=== PATIENT | male | born 1935 | race African-American/Black ===

== ENCOUNTER 2018-01-27 22:11 | Emergency (ER) | payer OTHER ==
[~2018-01-27] VITALS: Ht 182.9 cm; Wt 87.0 kg
[~2018-01-27 22:11] MED LIST: ATENOLOL; DILAUDID; HCTZ; LISINOPRIL; NORCO; SIMVASTATIN
[2018-01-27] MEDS ORDERED: SODIUM CHLORIDE 0.9% 1,000 ML IV ONE (22:58)
[2018-01-27 23:53] LABS: BASOPHILS % 0.5 % (0.0-2.0); EOSINOPHILS % 0.1 % (0.0-5.0); HEMATOCRIT. 31.9 % (42.0-52.0); HEMOGLOBIN. 10.6 g/dL (14.0-18.0); LYMPHOCYTES % 12.9 % (20.0-50.0); MEAN CORPUSCULAR HEMOGLOBIN 25.3 pg (28.0-32.0); MEAN CORPUSCULAR VOLUME 76.1 fL (80.0-94.0); MEAN PLATELET VOLUME 7.1 fl (7.4-10.4); MONOCYTES % 13.1 % (2.0-8.0); NEUTROPHILS % 73.4 % (40.0-76.0); PLATELET 275 x1000/uL (130-400); RED CELL DISTRIBUTION WIDTH 19.6 % (11.6-14.6)
[2018-01-28 00:04] LABS: CHLORIDE 103 mEq/L (98-107)
[2018-01-28 00:49] LABS: CLARITY URINE TURBID (CLEAR); COLOR URINE YELLOW (YELLOW); KETONES URINE TRACE (NEGATIVE); LEUKOCYTE ESTERASE URINE 3+ (NEGATIVE); NITRITE URINE NEGATIVE (NEGATIVE); OCCULT BLOOD URINE 3+ (NEGATIVE); PROTEIN URINE 2+ (NEGATIVE); UROBILINOGEN URINE 0.2 E.U./dL (0.2-1.0)
[2018-01-28 02:23] VITALS: BP 115/77
== END 2018-01-28 02:30 | disposition home or self-care (01) ==
LOC: ER 22:23
DX: N39.0 Urinary tract infection, site not specified (principal); E11.9 Type 2 diabetes mellitus without complications; R56.9 Unspecified convulsions
CPT/HCPCS: 36415; 70450; 71045; 80053; 81003; 84484; 85025; 87077; 87086; 87186; 93005; 99285; J7030

== ENCOUNTER 2020-05-17 13:27 | Emergency (ER) | payer OTHER ==
[~2020-05-17] VITALS: Ht 180.3 cm; Wt 73.0 kg
[2020-05-17] MEDS ORDERED: PHENYTOIN (13:35)
[2020-05-17] MEDS ORDERED: TAMSULOSIN (13:35)
[2020-05-17] MEDS ORDERED: AMLODIPINE (13:35)
[2020-05-17] MEDS ORDERED: LISINOPRIL (13:35)
[2020-05-17] MEDS ORDERED: FINASTERIDE (13:35)
[2020-05-17] MEDS ORDERED: ESCITALOPRAM (13:35)
[2020-05-17] MEDS ORDERED: SPIRONOLACTONE (13:35)
[2020-05-17] MEDS ORDERED: IRON (13:35)
[2020-05-17 15:00] LABS: BASOPHILS % 1.1 % (0.0-2.0); EOSINOPHILS % 0.7 % (0.0-5.0); HEMATOCRIT. 40.7 % (42.0-52.0); LYMPHOCYTES % 35.9 % (20.0-50.0); MEAN CORPUSCULAR HEMOGLOBIN 32.8 pg (28.0-32.0); MEAN CORPUSCULAR VOLUME 95.5 fL (80.0-94.0); MEAN PLATELET VOLUME 7.5 fl (7.4-10.4); MONOCYTES % 12.9 % (2.0-8.0); NEUTROPHILS % 49.4 % (40.0-76.0); PLATELET 190 x1000/uL (130-400); RED BLOOD CELL COUNT 4.26 mill/uL (4.7-6.1); RED CELL DISTRIBUTION WIDTH 13.7 % (11.6-14.6)
[2020-05-17 15:07] LABS: CHLORIDE 104 mEq/L (98-107)
[2020-05-17 19:40] LABS: CLARITY URINE CLEAR (CLEAR); COLOR URINE YELLOW (YELLOW); KETONES URINE NEGATIVE (NEGATIVE); LEUKOCYTE ESTERASE URINE NEGATIVE (NEGATIVE); NITRITE URINE NEGATIVE (NEGATIVE); OCCULT BLOOD URINE NEGATIVE (NEGATIVE); PH URINE 8.5 (4.5-8.0); PROTEIN URINE NEGATIVE (NEGATIVE); SPECIFIC GRAVITY URINE 1.029 (1.005-1.030); UROBILINOGEN URINE 0.2 E.U./dL (0.2-1.0)
[2020-05-17 21:25] VITALS: BP 176/83
== END 2020-05-17 22:02 | disposition home or self-care (01) ==
LOC: ER 14:03
DX: R10.30 Lower abdominal pain, unspecified (principal); I31.3 Pericardial effusion (noninflammatory); N40.0 Benign prostatic hyperplasia without lower urinary tract symptoms; E11.9 Type 2 diabetes mellitus without complications; I10 Essential (primary) hypertension; Z87.440 Personal history of urinary (tract) infections; Z79.899 Other long term (current) drug therapy
CPT/HCPCS: 36415; 71045; 74177; 80053; 81003; 83605; 84484; 85025; 93005; 99285

== ENCOUNTER 2020-05-26 17:06 | Emergency (ER) | payer OTHER ==
[~2020-05-26] VITALS: Ht 180.3 cm; Wt 69.3 kg
[~2020-05-26 17:06] MED LIST changes: +AMLODIPINE; +ESCITALOPRAM; +FINASTERIDE; +IRON; +PHENYTOIN; +SPIRONOLACTONE; +TAMSULOSIN
[2020-05-26] MEDS ORDERED: METRONIDAZOLE 500 MG PREMIX 100 ML IV ONE (18:15)
[2020-05-26] MEDS ORDERED: CEFTRIAXONE 1 G PREMIX 50 ML IV ONE (18:15)
[2020-05-26 18:22] LABS: BASOPHILS % 1.2 % (0.0-2.0); EOSINOPHILS % 1.3 % (0.0-5.0); HEMOGLOBIN. 13.6 g/dL (14.0-18.0); MEAN CORPUSCULAR HEMOGLOBIN 33.3 pg (28.0-32.0); MEAN CORPUSCULAR VOLUME 93.6 fL (80.0-94.0); MEAN PLATELET VOLUME 7.5 fl (7.4-10.4); MONOCYTES % 12.2 % (2.0-8.0); NEUTROPHILS % 48.3 % (40.0-76.0); PLATELET 221 x1000/uL (130-400); RED BLOOD CELL COUNT 4.07 mill/uL (4.7-6.1); RED CELL DISTRIBUTION WIDTH 13.7 % (11.6-14.6)
[2020-05-26 18:27] LABS: CHLORIDE 106 mEq/L (98-107)
[2020-05-26 18:29] LABS: INR 1.1; PROTHROMBIN TIME 11.3 sec (9.6-11.0)
[2020-05-26 18:31] LABS: ETHANOL BLOOD < 10 mg/dL
[2020-05-26 18:34] LABS: LDL CHOLESTEROL 72 mg/dL (5-100)
[2020-05-26 18:36] LABS: CLARITY URINE CLEAR (CLEAR); COLOR URINE YELLOW (YELLOW); KETONES URINE NEGATIVE (NEGATIVE); LEUKOCYTE ESTERASE URINE NEGATIVE (NEGATIVE); NITRITE URINE NEGATIVE (NEGATIVE); OCCULT BLOOD URINE NEGATIVE (NEGATIVE); PROTEIN URINE NEGATIVE (NEGATIVE); SPECIFIC GRAVITY URINE 1.012 (1.005-1.030); UROBILINOGEN URINE 0.2 E.U./dL (0.2-1.0)
[2020-05-26 18:57] LABS: *AMPHETAMINES SCREEN URINE NEGATIVE (NEGATIVE); *BARBITURATES SCREEN URINE NEGATIVE (NEGATIVE); *BENZODIAZEPINES SCREEN URINE NEGATIVE (NEGATIVE); *COCAINE SCREEN URINE NEGATIVE (NEGATIVE); METHADONE URINE SCREEN NEGATIVE (NEGATIVE)
[2020-05-26 18:58] LABS: CANNABINOID URINE SCREEN NEGATIVE (NEGATIVE); OPIATES URINE SCREEN NEGATIVE (NEGATIVE); PHENCYCLIDINE URINE SCREEN NEGATIVE (NEGATIVE)
[2020-05-26 21:26] VITALS: BP 172/87
== END 2020-05-26 21:40 | disposition short-term general hospital (02) ==
LOC: ER 17:06 → EDBEDREQ 17:46 → EDBEDREQTM 17:46 → ER 21:40 → CANBEDREQ 21:49
DX: R41.82 Altered mental status, unspecified (principal); E11.9 Type 2 diabetes mellitus without complications; E78.00 Pure hypercholesterolemia, unspecified; I10 Essential (primary) hypertension; Z87.440 Personal history of urinary (tract) infections
CPT/HCPCS: 36415; 70450; 71045; 74176; 80053; 80305; 80320; 81003; 82962; 83605; 83690; 83721; 84484; 85025; 85610; 86850; 86900; 86901; 93005; 96365; 99285; J0696; J3490; G0480

== ENCOUNTER 2021-01-30 00:45 | Emergency (ER) | payer OTHER ==
[~2021-01-30] VITALS: Ht 175.3 cm; Wt 75.0 kg
[2021-01-30] MEDS ORDERED: HYDROCODONE/ACETAMINOPHEN 10/325MG TABLET PO ONE (01:15)
[2021-01-30] MEDS ORDERED: LIDOCAINE 5% PATCH TOP SCH (04:15)
[2021-01-30 07:00] VITALS: BP 143/69
== END 2021-01-30 07:17 | disposition home or self-care (01) ==
LOC: ER 00:45
DX: G89.29 Other chronic pain (principal); M25.552 Pain in left hip; M25.551 Pain in right hip; E11.9 Type 2 diabetes mellitus without complications; E78.00 Pure hypercholesterolemia, unspecified; I10 Essential (primary) hypertension; Z99.3 Dependence on wheelchair
CPT/HCPCS: 72170; 93005; 99283

== ENCOUNTER 2021-02-12 12:10 | Emergency (ER) | payer OTHER ==
[~2021-02-12] VITALS: Ht 182.9 cm; Wt 73.0 kg
[2021-02-12] MEDS ORDERED: CEFTRIAXONE 1 G PREMIX 50 ML IV ONE (13:00)
[2021-02-12] MEDS ORDERED: SODIUM CHLORIDE 0.9% 1000ML BAG (SEPSIS BOLUS) IV ONE (13:00)
[2021-02-12] MEDS ORDERED: VANCOMYCIN 1 G PREMIX 200 ML IV ONE (13:00)
[2021-02-12 13:44] LABS: HEMATOCRIT. 44.2 % (42.0-52.0); HEMOGLOBIN. 14.7 g/dL (14.0-18.0); LYMPHOCYTES % 41.3 % (20.0-50.0); MEAN CORPUSCULAR HEMOGLOBIN 32.4 pg (28.0-32.0); MEAN CORPUSCULAR VOLUME 97.6 fL (80.0-94.0); MEAN PLATELET VOLUME 8.6 fl (7.4-10.4); MONOCYTES % 13.7 % (2.0-8.0); PLATELET 237 x1000/uL (130-400); RED BLOOD CELL COUNT 4.53 mill/uL (4.7-6.1); RED CELL DISTRIBUTION WIDTH 13.7 % (11.6-14.6)
[2021-02-12 13:55] LABS: CLARITY URINE CLEAR (CLEAR); COLOR URINE YELLOW (YELLOW); KETONES URINE NEGATIVE (NEGATIVE); LEUKOCYTE ESTERASE URINE NEGATIVE (NEGATIVE); NITRITE URINE NEGATIVE (NEGATIVE); OCCULT BLOOD URINE TRACE (NEGATIVE); PH URINE 7.5 (4.5-8.0); PROTEIN URINE 1+ (NEGATIVE); SPECIFIC GRAVITY URINE 1.012 (1.005-1.030)
[2021-02-12 14:59] LABS: CHLORIDE 102 mEq/L (98-107)
[2021-02-12 15:00] LABS: PROTHROMBIN TIME 11.2 sec (9.6-11.0)
[2021-02-12 15:06] LABS: C REACTIVE PROTEIN QUANT 6.6 mg/L (0.0-3.0)
[2021-02-12 15:09] LABS: CREATINE KINASE 169 IU/L (39-308)
[2021-02-12] MEDS ORDERED: LABETALOL HCL 20MG/4ML CARPUJECT IV ONE (18:45)
[2021-02-12 18:47] VITALS: BP 196/92
== END 2021-02-12 18:27 | disposition short-term general hospital (02) ==
LOC: ER 12:10 → CANBEDREQ 17:59 → ER 18:27
DX: R41.82 Altered mental status, unspecified (principal); R05 Cough; F03.90 Unspecified dementia, unspecified severity, without behavioral disturbance, psychotic disturbance, mood disturbance, and anxiety; I10 Essential (primary) hypertension; Z79.899 Other long term (current) drug therapy; Z20.822 Contact with and (suspected) exposure to COVID-19
CPT/HCPCS: 36415; 70450; 71045; 80053; 81003; 82550; 82728; 83605; 83615; 83690; 83880; 84145; 84484; 85025; 85384; 85610; 86140; 87040; 87086; 93005; 96365; 96366; 96368; 96375; 99285; C9803; J0696; J3370; J3490; J7030; U0003; A4315